=== PATIENT | female | born 1925 | race Caucasian/White ===

== ENCOUNTER 2017-01-25 13:04 | Inpatient (IN) | payer MEDICARE ==
[~2017-01-25] VITALS: Ht 167.6 cm; Wt 65.0 kg
[2017-01-25] MEDS ORDERED: EXELON 4.6 MG TD (20:04)
[2017-01-25] MEDS ORDERED: LIPITOR TAB 1010 MG PO (20:05)
[2017-01-25] MEDS ORDERED: SYNTHROID125 MCG PO (20:05)
[2017-01-25] MEDS ORDERED: ELIQUIS2.5 MG PO (20:05)
[2017-01-25] MEDS ORDERED: COREG 3.125M3.125 MG PO (20:06)
[2017-01-25] MEDS ORDERED: VITAMIN D50000 UNIT PO (20:07)
[2017-01-25] MEDS ORDERED: ZYRTEC10 M3 PO (20:07)
[2017-01-25] MEDS ORDERED: ASPIR 8181 MG PO (20:08)
[2017-01-25] MEDS ORDERED: MULTIVITAMINS1 EAC1 PO (20:09)
[2017-01-26 04:26] LABS: HEMOGLOBIN 9.8 gm/dl (12.3-15.3); RED BLOOD COUNT 3.32 M/UL (4.00-5.10); WHITE BLOOD COUNT 5.9 K/UL (4.5-11.0)
[2017-01-26 04:44] LABS: BUN/CREATININE RATIO 30 (0-10)
[2017-01-30 07:36] LABS: BUN/CREATININE RATIO 37 (0-10)
[2017-02-01 07:40] LABS: BUN/CREATININE RATIO 33 (0-10)
[2017-02-01 07:50] LABS: HEMOGLOBIN 8.8 gm/dl (12.3-15.3); RED BLOOD COUNT 2.94 M/UL (4.00-5.10); WHITE BLOOD COUNT 5.2 K/UL (4.5-11.0)
[2017-02-03 05:08] LABS: HEMOGLOBIN 9.5 gm/dl (12.3-15.3); WHITE BLOOD COUNT 4.8 K/UL (4.5-11.0)
[2017-02-03 05:09] LABS: RED BLOOD COUNT 3.26 M/UL (4.00-5.10)
[2017-02-03 05:42] LABS: BUN/CREATININE RATIO 25 (0-10)
== END 2017-02-03 18:45 | disposition short-term general hospital (02) | DRG 544 ==
LOC: ER1 13:04 → ZEROF 15:52 → M/S 15:52
PROVIDERS: Family Medicine; ADMIT Family Medicine
DX: M80.052A Age-related osteoporosis with current pathological fracture, left femur, initial encounter for fracture (principal); Z91.81 History of falling; F01.50 Vascular dementia, unspecified severity, without behavioral disturbance, psychotic disturbance, mood disturbance, and anxiety; I10 Essential (primary) hypertension; E03.9 Hypothyroidism, unspecified; E78.00 Pure hypercholesterolemia, unspecified; Z88.0 Allergy status to penicillin; I48.91 Unspecified atrial fibrillation; K59.00 Constipation, unspecified; Z79.01 Long term (current) use of anticoagulants; W01.0XXA Fall on same level from slipping, tripping and stumbling without subsequent striking against object, initial encounter; Y92.019 Unspecified place in single-family (private) house as the place of occurrence of the external cause; Z87.310 Personal history of (healed) osteoporosis fracture
CPT/HCPCS: 36415; 70450; 73522; 73564; 73590; 80048; 80053; 85027; 96374; 96375; 97110; 97530; 99285; J2270; J2405